=== PATIENT | male | born 1955 | race Two or more races ===

== ENCOUNTER 2025-08-21 11:10 | Emergency (ER) | payer OTHER ==
[~2025-08-21] VITALS: Ht 170.2 cm; Wt 60.6 kg
[2025-08-21] MEDS ORDERED: OLME20TA50 (11:18)
[2025-08-21] MEDS ORDERED: XALA0.007 (11:18)
[2025-08-21] MEDS: IBUPROFEN 600 MG TAB PO ONE (13:20)
[2025-08-21 13:24] VITALS: BP 162/82; TEMP 96.9; O2SAT 99
== END 2025-08-21 14:39 | disposition home or self-care (01) ==
LOC: M ED 11:10
DX: S20.212A Contusion of left front wall of thorax, initial encounter (principal); W22.8XXA Striking against or struck by other objects, initial encounter; Y92.9 Unspecified place or not applicable; Y93.9 Activity, unspecified; Y99.9 Unspecified external cause status; I10 Essential (primary) hypertension